=== PATIENT | male | born 1960 | race Caucasian/White ===

== ENCOUNTER 2023-05-15 08:08 | Day surgery (SDC) | payer OTHER ==
[~2023-05-15] VITALS: Ht 193 cm; Wt 132.6 kg
[~2023-05-15 08:08] MED LIST: ASPI81CH PO; ATOR20 PO; CATAFLAM PO; CEFU500 PO; CEPH500 PO; CLOP75 PO; CYCL10 PO; DICL25ER PO; HYDACE10B; METO50ER PO; MORP15ER PO; OLME20 PO; OXYACE5T PO
[2023-05-15] MEDS ORDERED: CYCL10 PO (09:21)
[2023-05-15 10:27] VITALS: BP 130/81
== END 2023-05-15 10:44 | disposition home or self-care (01) ==
LOC: ORSCSDS 08:08
PROVIDERS: Internal Medicine Gastroenterology
PROC: 0DBN8ZX Excision of Sigmoid Colon, Via Natural or Artificial Opening Endoscopic, Diagnostic (ICD-10-PCS; principal; 2023-05-15 09:30)
DX: Z12.11 Encounter for screening for malignant neoplasm of colon (principal); Z86.010 Personal history of colon polyps; Z80.0 Family history of malignant neoplasm of digestive organs; K63.5 Polyp of colon; I10 Essential (primary) hypertension; E78.5 Hyperlipidemia, unspecified; K57.30 Diverticulosis of large intestine without perforation or abscess without bleeding; K64.8 Other hemorrhoids; Z87.891 Personal history of nicotine dependence; Z79.82 Long term (current) use of aspirin; Z79.899 Other long term (current) drug therapy
CPT/HCPCS: 82947; 88305; J2704; J7120

== ENCOUNTER 2025-01-12 10:08 | Day surgery (SDC) | payer OTHER ==
[~2025-01-12] VITALS: Ht 195.6 cm; Wt 145.3 kg
[~2025-01-12 10:08] MED LIST changes: +Balanced Salt Epinephrine Irrigation Solution 500 mL IR SCH; +Diazepam 5 MG Tab PO PRN; +Diazepam 5 MG Tab PO SCH; +Lidocaine HCl/Pf 1% 5 ML VIAL XX SCH; +Moxifloxacin HCL 0.5 MG/0.1 ML 0.4MLSYR LEFTEYE SCH; +Ondansetron 4 MG SoluTab MM PRN; +PHENYLEPHRINE\\TROPICAMIDE\\TETRACAINE OPHTHALMIC DILATING SOLN LEFTEYE PRN; +Povidone-Iodine 450 DROP/30 ML Solution LEFTEYE SCH; +Povidone-Iodine 450 DROP/30 ML Solution ONE; +Tetracaine HCl/Pf 0.5% Opth Soln 4 ml ONE; +Triamcinolone Inj Susp 40 MG / ML 1ML Vial INJ SCH; +Triamcinolone Inj Susp 40 MG / ML 1ML Vial ONE
[2025-01-12] MEDS ORDERED: Diazepam 10 MG Tab ONE (10:14)
[2025-01-12] MEDS ORDERED: METFORMIN HCL500 M3 PO (10:24)
[2025-01-12] MEDS ORDERED: Diclofenac Pota50 MG PO (10:24)
--- NOTE | 2025-01-12 10:33 | NUR ---
01/12/25 1033 Razia Walker PATIENT'S BP ELEVATED UPON FIRST COMING INTO ROOM. AFTER HAVING PATIENT LAY DOWN AND RELAX FOR A FEW MINUTES BP CAME DOWN TO WITHIN RANGE TO PROCEED WITH VALIUM ADMINISTRATION. PT REPORTS 0/10 ANXIETY PRIOR TO ADMINISTRATION OF VALIUM 10MG PO @ 1031. TETRACAINE IN AT 1030. PLEDGETT IN AT 1031. CALL LIGHT PLACED IN PATIENT'S HAND.
--- NOTE | 2025-01-12 11:23 | NUR ---
01/12/25 1122 Neeta Khan BP-213/122 P-70 SPO2-99% 10L BLOW BY O2 INFORMED OF BP
[2025-01-12 11:39] VITALS: BP 143/95
--- NOTE | 2025-01-12 11:56 | NUR ---
01/12/25 1156 Eufemia Wright BILATERAL HEARING AIDS PLACED BACK IN BOTH EARS. AT BEDSIDE
== END 2025-01-12 11:59 | disposition home or self-care (01) ==
LOC: ORSCSDS 10:08
PROVIDERS: Ophthalmology
PROC: 08RK3JZ Replacement of Left Lens with Synthetic Substitute, Percutaneous Approach (ICD-10-PCS; principal; 2025-01-12 11:30)
DX: H25.813 Combined forms of age-related cataract, bilateral (principal); H52.202 Unspecified astigmatism, left eye; E78.5 Hyperlipidemia, unspecified; I10 Essential (primary) hypertension; Z79.82 Long term (current) use of aspirin; Z79.899 Other long term (current) drug therapy
CPT/HCPCS: 82947; A9270; J3301; V2632

== ENCOUNTER 2025-01-19 07:04 | Day surgery (SDC) | payer OTHER ==
[~2025-01-19] VITALS: Ht 195.6 cm; Wt 146.2 kg
[~2025-01-19 07:04] MED LIST changes: -Balanced Salt Epinephrine Irrigation Solution 500 mL IR SCH; -Diazepam 5 MG Tab PO PRN; -Diazepam 5 MG Tab PO SCH; +Diclofenac Pota50 MG PO; +Lidocaine HCl/Pf 1% 5 ML VIAL ONE; -Lidocaine HCl/Pf 1% 5 ML VIAL XX SCH; +METFORMIN HCL500 M3 PO; -Moxifloxacin HCL 0.5 MG/0.1 ML 0.4MLSYR LEFTEYE SCH; -Ondansetron 4 MG SoluTab MM PRN; -PHENYLEPHRINE\\TROPICAMIDE\\TETRACAINE OPHTHALMIC DILATING SOLN LEFTEYE PRN; -Povidone-Iodine 450 DROP/30 ML Solution LEFTEYE SCH; -Triamcinolone Inj Susp 40 MG / ML 1ML Vial INJ SCH
[2025-01-19] MEDS ORDERED: Diazepam 10 MG Tab ONE (07:34)
--- NOTE | 2025-01-19 07:44 | NUR ---
01/19/25 0744 Razia Wlaker PATIENT REPORTS 0/10 ANXIETY PRIOR TO ADMINISTRATION OF VALIUM 10MG PO @ 0743. SPO2 AND HR MONITORING IN PLACE. CALL LIGHT AT BEDSIDE. WILL CONTINUE TO MONITOR.
[2025-01-19] MEDS ORDERED: Lidocaine HCl/Pf 1% 5 ML VIAL XX ONE (08:31)
[2025-01-19] MEDS ORDERED: Balanced Salt Epinephrine Irrigation Solution 500 mL IR ONE (08:31)
[2025-01-19] MEDS ORDERED: Moxifloxacin HCL 0.5 MG/0.1 ML 0.4MLSYR RIGHTEYE ONE (08:31)
--- NOTE | 2025-01-19 08:32 | NUR ---
01/19/25 0832 Emmanuelle Guzman VITALS AT 0830 BP:159/88 P:64 O2:100% 10 LITERS OF BLOW BY OXYGEN
[2025-01-19 08:47] VITALS: BP 132/92
--- NOTE | 2025-01-19 08:47 | NUR ---
01/19/25 0847 Eufemia Wright REPORT RECEIVED FROM JONATHAN HAWKINS
== END 2025-01-19 09:02 | disposition home or self-care (01) ==
LOC: ORSCSDS 07:04
PROVIDERS: Ophthalmology
PROC: 08RJ3JZ Replacement of Right Lens with Synthetic Substitute, Percutaneous Approach (ICD-10-PCS; principal; 2025-01-19 08:30)
DX: E11.36 Type 2 diabetes mellitus with diabetic cataract (principal); H25.811 Combined forms of age-related cataract, right eye; Z96.1 Presence of intraocular lens; E78.5 Hyperlipidemia, unspecified; Z87.891 Personal history of nicotine dependence; I10 Essential (primary) hypertension; Z79.82 Long term (current) use of aspirin; Z79.899 Other long term (current) drug therapy
CPT/HCPCS: 82947; A9270; J2003; J3301; V2632

== ENCOUNTER → 2025-07-16 | Outpatient (CLI) | payer OTHER ==
[~2025-07-16] MED LIST changes: -Lidocaine HCl/Pf 1% 5 ML VIAL ONE; -Povidone-Iodine 450 DROP/30 ML Solution ONE; -Tetracaine HCl/Pf 0.5% Opth Soln 4 ml ONE; -Triamcinolone Inj Susp 40 MG / ML 1ML Vial ONE
== END ==
LOC: LAB SHORT 10:14 → LAB 10:14
DX: I20.1 Angina pectoris with documented spasm (principal)
CPT/HCPCS: 84484